=== PATIENT | female | born 1965 | race Two or more races ===

== ENCOUNTER 2017-08-03 10:29 | Emergency (ER) | payer OTHER ==
[~2017-08-03] VITALS: Ht 152.4 cm; Wt 63.5 kg
[~2017-08-03 10:29] MED LIST: BENAZEPRIL HCL10 MG ORAL; NAPROSYN500 M1 ORAL
[2017-08-03] MEDS ORDERED: DICLOFENAC SODI75 MG ORAL (10:52)
[2017-08-03] MEDS ORDERED: Ketorolac 30mg Inj IV ONE (11:15)
[2017-08-03 12:10] LABS: BASOPHILS % (AUTO) 1.1 % (0.0-2.0); EOSINOPHILS % (AUTO) 0.7 % (0.0-3.0); LYMPHOCYTES % (AUTO) 18.2 % (20.0-45.0); MEAN CORPUSCULAR HEMOGLOBIN 27.5 PG (27.0-31.0); MEAN CORPUSCULAR HGB CONC 31.5 G/DL (32.0-36.0); MEAN CORPUSCULAR VOLUME 87 FL (80-99); MEAN PLATELET VOLUME 6.8 FL (6.5-10.1); MONOCYTES % (AUTO) 3.4 % (1.0-10.0); NEUTROPHILS % (AUTO) 76.6 % (45.0-75.0); PLATELET COUNT 435 K/UL (150-450); RED BLOOD COUNT 4.46 M/UL (4.20-5.40); RED CELL DISTRIBUTION WIDTH 16.6 % (11.6-14.8); WHITE BLOOD COUNT 9.1 K/UL (4.8-10.8)
[2017-08-03 12:15] LABS: INR 0.9 (0.9-1.1); PROTHROMBIN TIME 9.1 SEC (9.30-11.50)
[2017-08-03 12:22] LABS: TROPONIN I < 0.30 ng/mL (<=0.30)
[2017-08-03 12:24] VITALS: BP 150/67
[2017-08-03 12:25] LABS: ALANINE AMINOTRANSFERASE 10 U/L (3-33); ANION GAP 12 (5-15); ASPARTATE AMINO TRANSFERASE 21 U/L (5-40); CALCIUM 9.2 mg/dL (8.6-10.2); CARBON DIOXIDE 27 mEQ/L (20-30); CHLORIDE 101 mEQ/L (98-107); CREATININE 0.5 mg/dL (0.5-0.9); GLOMERULAR FILTRATION RATE > 60 mL/min (>60); HEMOLYSIS 0; LIPASE 28 U/L (< 60); SODIUM 140 mEQ/L (135-145); TOTAL PROTEIN 7.6 g/dL (6.6-8.7)
[2017-08-03 13:15] LABS: ERYTHROCYTE SEDIMENTATION RATE 38 MM/HR (0-30)
[2017-08-03 14:30] VITALS: BP 142/65
[2017-08-03 14:52] LABS: APPEARANCE,URINE CLEAR; KETONES,URINE NEGATIVE (NEGATIVE); LEUKOCYTE ESTERASE ,URINE NEGATIVE (NEGATIVE); NITRITE,URINE NEGATIVE (NEGATIVE); PH,URINE 7 (4.5-8.0); PROTEIN,URINE NEGATIVE (NEGATIVE); UROBILINOGEN,URINE NORMAL MG/DL (0.0-1.0)
--- NOTE | 2017-08-03 16:02 | Emergency Room Report ---
History of Present Illness General Chief Complaint: Nausea Source: Patient Present Illness HPI Patient presents with myalgias, arthralgia and nausea. She is unable to eat this morning because of nausea. She's also had intermittent swelling of her left knee. In addition to that she's had several months of redness in her eyes. She states that it's a specialist has seen her and ruled out glaucoma. One eye was involved then, now both. No pain in her eyes. No change in vision. She's felt feverish and chills. There's been no cough. She denies any dysuria. There is slight occipital headache 8/10 - pressure aching occiput without radiation. No neck pain. She was evaluated in past for L knee swelling. Arthritis only treated with naprosyn (prior motrin). No steroids (though considered). States = rheumatoid. No diarrhea, vomiting, URI, rashes. Apparently, she told the RN she had vomiting, but denies this to me. She had some shakes when she stood and felt she was about to pass out this morning. She has not eaten today. 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 Last Menstrual Period: n Reviewed Nursing Documentation: PMH: Agreed, PSxH: Agreed Nursing Documentation-PMH Past Medical History: No History, Except For Hx Hypertension: Yes Review of Systems All Other Systems: negative except mentioned in HPI Physical Exam Vital Signs Date Time Temp Pulse Resp B/P (MAP) Pulse Ox O2 Delivery O2 Flow Rate FiO2 08/03/17 10:47 99.1 102 20 161/79 97 Room Air Sp02 EP Interpretation: reviewed, normal General Appearance: well appearing, no apparent distress, GCS 15 Head: normocephalic, atraumatic Eyes: bilateral eye PERRL, bilateral eye EOMI, bilateral eye Scleral Injection - pterigia ENT: moist mucus membranes Neck: supple, no meningismus, no bony tend Respiratory: lungs clear, normal breath sounds Cardiovascular #1: regular rate, rhythm Cardiovascular #2: 2+ radial (R) Gastrointestinal: normal inspection, normal bowel sounds, non tender, no mass, non-distended Musculoskeletal: back normal, gait/station normal, normal range of motion - with slight decrease L knee, swelling - L knee with effusion, no erythema or warmth, ligs intact Neurologic: alert, oriented x3, grossly normal Psychiatric: mood/affect normal Skin: normal inspection, warm/dry, other - no erythema or warmth over knee Medical Decision Making Diagnostic Impression: Primary Impression: Arthralgia Qualified Codes: M25.50 - Pain in unspecified joint Additional Impressions: Nausea Swollen L knee Near syncope ER Course Patient with nausea and not eating with arthralgias and headache and episode of shaking without LOC this AM. Ddx; near syncope, viral syndrome, sepsis, GItis, food poisoning, gout, pseudogout, exacerbation arthritis, uviitis, scleritis amongst others. Evaluation with labs and with EKG. Treatment with IV hydration and analgesia, zofran and pepcid. Normal WBC. Elevated ESR suggests inflammatory process (c/w exacerbation of arthritis). Uric acid normal. Xray last year: IMPRESSION: Suprapatellar effusion, nonspecific. Associated fat fluid level and, therefore, radiographically acute fracture, cannot be excluded. Consider CT scan or MRI for further evaluation. Lateral femoral condyle focal lucency and articular surface irregularity may represent chronic degenerative change or osteochondral injury Degenerative arthropathy Patient improved with treatment. Jenn PO. No more nausea. Discussed need for evaluation with PMD and consideration for tapping L knee to look for pseudogout. Patient stable for outpatient observation and treatment. Laboratory Tests Test 08/03/17 11:40 08/03/17 14:20 White Blood Count 9.1 K/UL (4.8-10.8) Red Blood Count 4.46 M/UL (4.20-5.40) Hemoglobin 12.3 G/DL (12.0-16.0) Hematocrit 39.0 % (37.0-47.0) Mean Corpuscular Volume 87 FL (80-99) Mean Corpuscular Hemoglobin 27.5 PG (27.0-31.0) Mean Corpuscular Hemoglobin Concent 31.5 G/DL (32.0-36.0) L Red Cell Distribution Width 16.6 % (11.6-14.8) H Platelet Count 435 K/UL (150-450) Mean Platelet Volume 6.8 FL (6.5-10.1) Neutrophils (%) (Auto) 76.6 % (45.0-75.0) H Lymphocytes (%) (Auto) 18.2 % (20.0-45.0) L Monocytes (%) (Auto) 3.4 % (1.0-10.0) Eosinophils (%) (Auto) 0.7 % (0.0-3.0) Basophils (%) (Auto) 1.1 % (0.0-2.0) Erythrocyte Sedimentation Rate 38 MM/HR (0-30) H Prothrombin Time 9.1 SEC (9.30-11.50) L Prothrombin Time INR 0.9 (0.9-1.1) PTT 26 SEC (23-33) Sodium Level 140 mEQ/L (135-145) Potassium Level 4.0 mEQ/L (3.4-4.9) Chloride Level 101 mEQ/L (98-107) Carbon Dioxide Level 27 mEQ/L (20-30) Anion Gap 12 (5-15) Blood Urea Nitrogen 8 mg/dL (7-23) Creatinine 0.5 mg/dL (0.5-0.9) Estimate Glomerular Filtration Rate > 60 mL/min (>60) Glucose Level 150 mg/dL (74-106) H Uric Acid 3.0 mg/dL (3.0-7.5) Calcium Level 9.2 mg/dL (8.6-10.2) Total Bilirubin 0.3 mg/dL (0.0-1.2) Aspartate Amino Transferase (AST) 21 U/L (5-40) Alanine Aminotransferase (ALT) 10 U/L (3-33) Alkaline Phosphatase 105 U/L (35-104) H Total Creatine Kinase 52 U/L (26-140) Troponin I < 0.30 ng/mL (<=0.30) Total Protein 7.6 g/dL (6.6-8.7) Albumin 3.8 g/dL (3.5-5.2) Globulin 3.8 g/dL Albumin/Globulin Ratio 1.0 (1.0-2.7) Lipase 28 U/L (< 60) Urine Color Pale yellow Urine Appearance Clear Urine pH 7 (4.5-8.0) Urine Specific [place] 1.010 (1.005-1.035) Urine Protein Negative (NEGATIVE) Urine Glucose (UA) Negative (NEGATIVE) Urine Ketones Negative (NEGATIVE) Urine Occult Blood Negative (NEGATIVE) Urine Nitrite Negative (NEGATIVE) Urine Bilirubin Negative (NEGATIVE) Urine Urobilinogen Normal MG/DL (0.0-1.0) Urine Leukocyte Esterase Negative (NEGATIVE) EKG Diagnostic Results Rate: tachycardiac ST Segments: no acute changes Rhythm Strip Diag. Results EP Interpretation: yes Rhythm: no PVC's, no ectopy, other - ST Last Vital Signs Date Time Temp Pulse Resp B/P (MAP) Pulse Ox O2 Delivery O2 Flow Rate FiO2 08/03/17 16:30 92 22 134/64 95 Room Air 08/03/17 14:30 98.0 Status: improved Disposition: HOME, SELF-CARE Condition: Improved Scripts Ondansetron Odt* (ZOFRAN ODT*) 4 Mg Tab.rapdis 4 MG ORAL Q8H Y for Nausea & Vomiting, #6 TAB 1 Refill Prov: Jhonny Macario M.D. 08/03/17 Colchicine (Colchicine) 0.6 Mg Capsule 0.6 MG PO TID Y for L knee pain/swelling, #14 CAP 1 Refill Hold for GI upset or diarrhea Prov: Jhonny Macario M.D. 08/03/17 Tramadol Hcl* (ULTRAM*) 50 Mg Tablet 50 MG ORAL Q6H Y for For Pain, #12 TAB 0 Refills Prov: Jhonny Macario M.D. 08/03/17 Referrals: [facility] (PCP) Jhonny Macario M.D. Aug 03, 2017 16:02
[2017-08-03] MEDS ORDERED: TRAMADOL HCL50 MG ORAL (16:14)
[2017-08-03] MEDS ORDERED: ZOFRAN ODT4 MG ORAL (16:14)
[2017-08-03] MEDS ORDERED: COLCHICINE0.6 M1 PO (16:14)
[2017-08-03 16:30] VITALS: BP 134/64
--- NOTE | 2017-08-04 19:16 | Cardiology Report ---
APPROVED REPORT EKG Measurement Heart [id number] CT 162P36 [id number] Sinus tachycardia Cannot rule out Anterior infarct, age undetermined Abnormal ECG
== END 2017-08-03 17:01 | disposition home or self-care (01) ==
LOC: EMR 11:10
DX: M25.562 Pain in left knee (principal); R11.0 Nausea; M79.89 Other specified soft tissue disorders; R55 Syncope and collapse; I10 Essential (primary) hypertension
CPT/HCPCS: 36415; 71010; 80053; 81003; 82550; 83690; 84484; 84550; 85025; 85610; 85651; 85730; 93005; 96361; 96374; 96375; 99284; J1885; J2405; S0028

== ENCOUNTER 2019-08-05 12:38 | Emergency (ER) | payer OTHER ==
[~2019-08-05] VITALS: Ht 149.9 cm; Wt 59.0 kg
[~2019-08-05 12:38] MED LIST changes: +COLCHICINE0.6 M1 PO; +DICLOFENAC SODI75 MG ORAL; +TRAMADOL HCL50 MG ORAL; +ZOFRAN ODT4 MG ORAL
[2019-08-05] MEDS ORDERED: BENAZEPRIL HCL10 MG ORAL (12:52)
--- NOTE | 2019-08-05 13:40 | NUR ---
ED Nurse Note:pt. came with left upper buttock abscess, skin is intact
[2019-08-05] MEDS ORDERED: Vancomycin 1 GM in NS 275 ML IV ONE (13:45)
[2019-08-05] MEDS ORDERED: Omnipaque-300 100ml vial INJ PRN (13:45)
[2019-08-05] MEDS ORDERED: Ampicillin/Sulbactam Sod 3 GM in NS 110 ML IV SCH (13:45)
[2019-08-05 13:49] VITALS: BP 158/83
[2019-08-05] MEDS ORDERED: Unasyn 1.5gm Vial ONE (13:53)
[2019-08-05] MEDS ORDERED: NS 110 ML ONE (13:53)
--- NOTE | 2019-08-05 14:35 | Diagnostic Imaging Report ---
Indication: Dyspnea Comparison: 08/03/2017 A single view chest radiograph was obtained. Findings: Cardiomediastinal appearance is within normal limits for age. The lungs are clear. Pulmonary vascularity is appropriate. The diaphragmatic contour is smooth and costophrenic angles are sharp. No pleural effusions are identified. The bones are unremarkable. Impression: No acute findings
[2019-08-05 14:40] LABS: BASOPHILS % (AUTO) 1.2 % (0.0-2.0); EOSINOPHILS % (AUTO) 0.2 % (0.0-3.0); HEMOGLOBIN 13.2 G/DL (12.0-16.0); LYMPHOCYTES % (AUTO) 21.9 % (20.0-45.0); MEAN CORPUSCULAR VOLUME 83 FL (80-99); MONOCYTES % (AUTO) 5.8 % (1.0-10.0); NEUTROPHILS % (AUTO) 70.9 % (45.0-75.0); PLATELET COUNT 327 K/UL (150-450); RED BLOOD COUNT 4.93 M/UL (4.20-5.40); WHITE BLOOD COUNT 10.1 K/UL (4.8-10.8)
[2019-08-05 14:50] LABS: ANION GAP 7 mmol/L (5-15); BLOOD UREA NITROGEN 9 mg/dL (7-18); CALCIUM 9.3 MG/DL (8.5-10.1); CARBON DIOXIDE 28 MMOL/L (21-32); CHLORIDE 99 MMOL/L (98-107); CREATININE 0.5 MG/DL (0.55-1.30); POTASSIUM 3.8 MMOL/L (3.5-5.1); SODIUM 134 MMOL/L (136-145)
[2019-08-05 14:51] LABS: APPEARANCE,URINE CLEAR; BILIRUBIN, URINE NEGATIVE (NEGATIVE); COLOR,URINE PALE YELLOW; GLUCOSE, URINE (UA) 4+ (NEGATIVE); KETONES,URINE 1+ (NEGATIVE); LEUKOCYTE ESTERASE ,URINE 1+ (NEGATIVE); NITRITE,URINE NEGATIVE (NEGATIVE); PH,URINE 7 (4.5-8.0); PROTEIN,URINE NEGATIVE (NEGATIVE); UROBILINOGEN,URINE NORMAL MG/DL (0.0-1.0)
--- NOTE | 2019-08-05 14:59 | Emergency Room Report ---
History of Present Illness General Chief Complaint: Skin Rash/Abscess Source: Patient Present Illness HPI Patient is a 53-year-old female presents after increased subjective fever as well as left buttock swelling for the past 3 days. Patient reports having some prior history of arthritis. She also takes medication for hypertension. She denies being diabetic. She was noted to have increased discomfort and increased pain with walking. She denies any other recent illness. She denies any chest pain or shortness of breath. She states she has not had any recent injections to the area or other recent trauma. Allergies: Coded Allergies: No Known Allergies (Unverified , 08/10/16) Patient History Past Medical History: see triage record Reviewed Nursing Documentation: PMH: Agreed; PSxH: Agreed Nursing Documentation-PMH Past Medical History: No History, Except For Hx Hypertension: Yes Review of Systems All Other Systems: negative except mentioned in HPI Physical Exam Vital Signs Date Time Temp Pulse Resp B/P (MAP) Pulse Ox O2 Delivery O2 Flow Rate FiO2 08/05/19 12:45 98.8 18 158/83 (108) 99 Room Air 08/05/19 13:49 89 Sp02 EP Interpretation: reviewed, normal General Appearance: normal inspection, well appearing, no apparent distress, alert, GCS 15, non-toxic, Chronically Ill Head: atraumatic ENT: normal ENT inspection, hearing grossly normal, normal voice Neck: normal inspection, full range of motion, supple, no bony tend Respiratory: normal inspection, lungs clear, normal breath sounds, no respiratory distress, no retraction, no wheezing Cardiovascular #1: regular rate, rhythm, no edema Gastrointestinal: normal inspection, normal bowel sounds, non tender, soft, no guarding, no hernia Genitourinary: no CVA tenderness Musculoskeletal: normal inspection, back normal, normal range of motion Neurologic: normal inspection, alert, oriented x3, responsive, employment program representative III-XII nml as tested, speech normal Psychiatric: normal inspection, judgement/insight normal, mood/affect normal Skin: other - indurated area to left buttock, no drainage, warmth Medical Decision Making Diagnostic Impression: Primary Impression: Cellulitis Additional Impression: Diabetes mellitus, new onset ER Course Patient presented for increased left leg pain. Differential diagnosis include was not limited to allergic reaction, insect bite, abscess, cellulitis among others. Because of complexity of patient's case laboratory tests and imaging studies were ordered. Patient was noted to have some warmth to the area of concern. As she was also noted to have some erythema without any definite fluctuance. Laboratory testing showed markedly elevated blood sugar as well as glucosuria without any evidence of ketones or acidosis. Patient was not noted to be diabetic in the past is not currently taking any diabetic medications.Laboratory testing showed normal white blood count. EKG showed some changes from prior EKG with septal Q waves and some septal ST changes which does not correlate with the patient's symptomatology. Patient's prior EKG was noted to be normal and patient had no current complaints of shortness of breath chest pain or any chest related discomfort. Repeat EKG shows no acute ST changes. Patient was discussed with Dr. Sandhu who agreed to accept the patient in transfer to [facility]. Labs Test 08/05/19 14:00 White Blood Count 10.1 K/UL (4.8-10.8) Red Blood Count 4.93 M/UL (4.20-5.40) Hemoglobin 13.2 G/DL (12.0-16.0) Hematocrit 41.0 % (37.0-47.0) Mean Corpuscular Volume 83 FL (80-99) Mean Corpuscular Hemoglobin 26.8 PG (27.0-31.0) Mean Corpuscular Hemoglobin Concent 32.3 G/DL (32.0-36.0) Red Cell Distribution Width 15.0 % (11.6-14.8) Platelet Count 327 K/UL (150-450) Mean Platelet Volume 7.7 FL (6.5-10.1) Neutrophils (%) (Auto) 70.9 % (45.0-75.0) Lymphocytes (%) (Auto) 21.9 % (20.0-45.0) Monocytes (%) (Auto) 5.8 % (1.0-10.0) Eosinophils (%) (Auto) 0.2 % (0.0-3.0) Basophils (%) (Auto) 1.2 % (0.0-2.0) Urine Color Pale yellow Urine Appearance Clear Urine pH 7 (4.5-8.0) Urine Specific [place] 1.005 (1.005-1.035) Urine Protein Negative (NEGATIVE) Urine Glucose (UA) 4+ (NEGATIVE) Urine Ketones 1+ (NEGATIVE) Urine Blood Negative (NEGATIVE) Urine Nitrite Negative (NEGATIVE) Urine Bilirubin Negative (NEGATIVE) Urine Urobilinogen Normal MG/DL (0.0-1.0) Urine Leukocyte Esterase 1+ (NEGATIVE) Urine RBC 0-2 /HPF (0 - 2) Urine WBC 2-4 /HPF (0 - 2) Urine Squamous Epithelial Cells Occasional /LPF Urine Bacteria Occasional /HPF (NONE) Sodium Level 134 MMOL/L (136-145) Potassium Level 3.8 MMOL/L (3.5-5.1) Chloride Level 99 MMOL/L (98-107) Carbon Dioxide Level 28 MMOL/L (21-32) Anion Gap 7 mmol/L (5-15) Blood Urea Nitrogen 9 mg/dL (7-18) Creatinine 0.5 MG/DL (0.55-1.30) Estimat Glomerular Filtration Rate > 60 mL/min (>60) Glucose Level 407 MG/DL (74-106) Lactic Acid Level 1.40 mmol/L (0.4-2.0) Calcium Level 9.3 MG/DL (8.5-10.1) Total Bilirubin 0.7 MG/DL (0.2-1.0) Aspartate Amino Transf (AST/SGOT) 19 U/L (15-37) Alanine Aminotransferase (ALT/SGPT) 18 U/L (12-78) Alkaline Phosphatase 185 U/L (46-116) Total Creatine Kinase 57 U/L (26-308) Creatine Kinase MB 1.1 NG/ML (0.0-3.6) Creatine Kinase MB Relative Index 1.9 Troponin I 0.041 ng/mL (0.000-0.056) Total Protein 7.7 G/DL (6.4-8.2) Albumin 3.1 G/DL (3.4-5.0) Globulin 4.6 g/dL Albumin/Globulin Ratio 0.7 (1.0-2.7) EKG Diagnostic Results Rate: normal - [address] changes Rhythm: NSR ST Segments: no acute changes Last Vital Signs Date Time Temp Pulse Resp B/P (MAP) Pulse Ox O2 Delivery O2 Flow Rate FiO2 08/05/19 13:49 98.8 89 18 158/83 99 Room Air Status: unchanged Disposition: XFER SHT-TRM HOSP Condition: Stable Referrals: [facility] (PCP) Neils Wilder MD Aug 05, 2019 14:59
[2019-08-05] MEDS ORDERED: Insulin Human Regular 100units/ml 3ml SUBQ ONE (15:00)
[2019-08-05 15:04] LABS: ALANINE AMINOTRANSFERASE 18 U/L (12-78); ALBUMIN 3.1 G/DL (3.4-5.0); ALBUMIN/GLOBULIN RATIO 0.7 (1.0-2.7); ALKALINE PHOSPHATASE 185 U/L (46-116); ASPARTATE AMINO TRANSFERASE 19 U/L (15-37); BILIRUBIN,TOTAL 0.7 MG/DL (0.2-1.0); CKMB 1.1 NG/ML (0.0-3.6); CREATINE KINASE 57 U/L (26-308)
--- NOTE | 2019-08-05 16:31 | Diagnostic Imaging Report ---
Indication: Abdominal pain Technique: Continuous helical transaxial imaging of the abdomen and pelvis was obtained from the lung bases to the pubic symphysis during intravenous contrast administration. Coronal 2-D reformats were also obtained. Study obtained in a Siemens sensation [address] Automatic Exposure Control was utilized. Total Dose length Product (DLP): 1462.[address] Dose Index Volume (CTDIvol): 25.4 mGy Comparison: None Findings: There is breathing motion limiting evaluation. Lung bases are essentially clear. The liver may be slightly hypodense. The gallbladder, spleen and pancreas, kidneys and adrenal glands are unremarkable is no hydronephrosis. Appendix is normal. There is no evidence of bowel obstruction. Some of the small bowel loops in the right lower quadrant demonstrate fecalized contents which is a sign of stasis. Some fecal retention noted as well. The bladder is unremarkable. The uterus is noted. IMPRESSION: No acute findings. No evidence of bowel obstruction. Fecalization of the terminal ileum with moderate stool retention in the colon. Findings a a sign of stasis and constipation. The CT scanner at [facility] is accredited by the [employer] and the scans are performed using dose optimization techniques as appropriate to a performed exam including Automatic Exposure control.
[2019-08-05 18:01] VITALS: BP_SYST 145; BP_SYST 158; BP_DIAS 83
--- NOTE | 2019-08-05 18:03 | NUR ---
ED Nurse Note:called marcos pres with report- given to nurse Rose, transportatin taken pt , condition is stable
--- NOTE | 2019-08-18 16:08 | Cardiology Report ---
APPROVED REPORT EKG Measurement Heart [id number] [place] 150P46 [id number] Sinus tachycardia Right superior axis deviation Inferior infarct, age undetermined Anterior infarct, age undetermined Abnormal ECG
--- NOTE | 2019-08-18 16:11 | Cardiology Report ---
APPROVED REPORT EKG Measurement Heart [id number] [place] 148P45 [id number] Normal sinus rhythm Left axis deviation Septal infarct, age undetermined Inferior infarct, age undetermined Abnormal ECG
== END 2019-08-05 18:05 | disposition short-term general hospital (02) ==
LOC: EMR 13:23
DX: L03.317 Cellulitis of buttock (principal); E11.65 Type 2 diabetes mellitus with hyperglycemia; I10 Essential (primary) hypertension; R81 Glycosuria; R06.00 Dyspnea, unspecified
CPT/HCPCS: 36415; 71045; 74177; 80053; 81003; 82550; 82553; 82962; 83605; 84484; 85025; 87040; 93005; 96365; 96366; 96368; 99284; J0295; J1815; J3370; J7050; Q9967